=== PATIENT | male | born 1960 | race Caucasian/White ===

== ENCOUNTER → 2016-12-09 | Outpatient (CLI) | payer OTHER ==
--- NOTE | 2016-12-09 13:52 | DIAGNOSTIC IMAGING REPORT ---
FLUOROSCOPICALLY GUIDED RIGHT HIP INTRA-ARTICULAR STEROID INJECTION CLINICAL HISTORY: Right hip degenerative joint disease. FLUOROSCOPY TIME: 15 seconds. PROCEDURE: The procedure, risks and benefits were discussed with the patient and informed written consent was obtained. The procedure was performed by Dr. Szymanski following a timeout. Skin overlying the right hip joint was prepped and draped in sterile fashion and local anesthesia was achieved with 1% lidocaine. Under intermittent fluoroscopic guidance, a 3 1/2 inch 22-gauge spinal needle was directed into the right hip joint. Positioning within the joint space was confirmed with injection of 1 cc of Optiray 300. At this time, a mixture of 2 cc of Celestone and 8 cc of 0.5% Marcaine was injected into the right hip joint and the needle was removed. The patient tolerated the procedure well and no immediate complications were evident. IMPRESSION: Fluoroscopically guided right hip intra-articular injection of 2 cc of Celestone and 8 cc of 0.5% Marcaine. Electronically signed by: Ananda Szymanski M.D. 12/09/2016 1:50 PM Dictated Date/Time: 12/09/2016 1:47 PM
== END | disposition home or self-care (01) ==
LOC: C.RADBC 12:52
PROVIDERS: ATTEND Orthopaedic Surgery
DX: M16.11 Unilateral primary osteoarthritis, right hip (principal)

== ENCOUNTER → 2017-04-10 | Outpatient (CLI) | payer OTHER ==
[~2017-04-10] MED LIST: GADAVIST IV PRN
--- NOTE | 2017-04-10 15:16 | DIAGNOSTIC IMAGING REPORT ---
PROSTATE MRI COMBO CLINICAL HISTORY: 56 years-old Male presenting with ELEVATED PSA. PSA 8.7 ng/mL. TECHNIQUE: Multisequence, multiplanar MR imaging of the prostate was performed before and after the administration of intravenous contrast. Additional postprocessing was performed on a separate OzVision workstation by the radiologist for 3-D volumetric segmentation of the prostate and contouring of region(s) of interest (YAMILET) for targeting. IV contrast: 10 cc intravenous Gadavist COMPARISON: None. FINDINGS: Prostate: The prostate measures 6.8 cm (DynaCAD prostate boundary segmentation volume 104.7 mL). There is prominent benign prostatic hypertrophy with median lobe hypertrophy which extends into the bladder base. Precontrast T1 weighted imaging demonstrates no evidence of intrinsic T1 hyperintensity to suggest hemorrhage. Seminal vesicles normal. Suspicious lesion(s) described below: Lesion (DynaCAD YAMILET) 1: Location: Left posteromedial peripheral zone at the mid gland. The lesion does not extend across the midline. Size: 4 mm (as measured on ADC for PZ lesion and T2WI for TZ lesion) T2W: 4. DWI: 4. Focal markedly hypointense on ADC and markedly hyperintense on high b-value DWI. DCE: Positive. Focal enhancement corresponding to a suspicious finding, earlier or contemporaneous with adjacent normal tissue. PI-RADS: 4. Clinically significant cancer is likely to be present. Bladder: Normal. Bowel: Visualized portion of the rectum normal. Peritoneum: No free fluid in the pelvis. Lymph nodes: No lymphadenopathy in the visualized portion of the pelvis. Vasculature: Iliac vessels patent. Osseous structures: Normal bone marrow signal intensity. IMPRESSION: 1. 4 mm lesion in the right posteromedial peripheral zone at the mid gland. PI-RADS 4. Clinically significant cancer is likely to be present. Please note, this lesion may be too accurately targeted for biopsy. 2. Benign prostatic hyperplasia. Electronically signed by: Harshil Turk M.D. 04/10/2017 3:15 PM Dictated Date/Time: 04/10/2017 2:51 PM
== END | disposition home or self-care (01) ==
LOC: C.MRIBC 13:25
PROVIDERS: ATTEND Urology
DX: R97.20 Elevated prostate specific antigen [PSA] (principal); N42.9 Disorder of prostate, unspecified

== ENCOUNTER → 2017-04-10 | Outpatient (CLI) | payer OTHER | END | disposition home or self-care (01) | LOC: C.LAB 11:57 | PROVIDERS: ATTEND Urology | DX: R97.20 Elevated prostate specific antigen [PSA] (principal) ==

== ENCOUNTER → 2017-04-17 | Outpatient (CLI) | payer OTHER ==
--- NOTE | 2017-04-17 13:33 | DIAGNOSTIC IMAGING REPORT ---
RIGHT HIP INJECTION UNDER FLUOROSCOPIC GUIDANCE CLINICAL HISTORY: Degenerative joint disease right hip. Therapeutic steroid injection. PROCEDURE: The risks, benefits, and alternatives to the procedure were discussed with the patient. Written informed consent was obtained. The patient was placed supine on the fluoroscopy table, and a right hip injection was performed under fluoroscopic guidance. The area was prepped and draped in the usual sterile fashion. The skin and soft tissues anesthetized with local 1% lidocaine. The right hip joint was accessed utilizing a 22-gauge needle, and intra-articular positioning was confirmed by injecting a small volume of Optiray 300. The prescribed dosage of 2 cc of betamethasone and 8 cc of 0.5% bupivacaine was then injected into the joint space. The procedure was well tolerated and without immediate complication. The patient left the department in satisfactory condition. FLUOROSCOPY TIME: 9 seconds. IMPRESSION: Successful steroid injection of the right hip under fluoroscopic guidance. Electronically signed by: Devin Chaves M.D. 04/17/2017 1:31 PM Dictated Date/Time: 04/17/2017 1:30 PM
== END | disposition home or self-care (01) ==
LOC: C.RADBC 12:38
PROVIDERS: ATTEND Orthopaedic Surgery
DX: M16.11 Unilateral primary osteoarthritis, right hip (principal)

== ENCOUNTER → 2017-07-12 | Outpatient (CLI) | payer OTHER | END | disposition home or self-care (01) | LOC: C.PATHSPEC 17:26 | PROVIDERS: ATTEND Urology | DX: R97.20 Elevated prostate specific antigen [PSA] (principal) ==

== ENCOUNTER 2017-08-07 08:46 | Inpatient (IN) | payer OTHER ==
[2017-07-17 10:53] VITALS: Ht 175.3 cm; Wt 110.4 kg
--- NOTE | 2017-07-17 11:18 | PAT Medication Instructions ---
Service Date Jul 17, 2017. Current Home Medication List Aspirin (Aspirin Ec), 81 MG PO QPM Atorvastatin (Lipitor), 20 MG PO QPM Hydrochlorothiazide (Hydrochlorothiazide), 1 TAB PO QAM Lisinopril (Zestril), 20 MG PO QPM Metformin Hcl (Glucophage), 500 MG PO QAM Multiple Vitamins W/ Minerals (Multi For Him 50+), 1 TAB PO QPM Tamsulosin Hcl (Flomax), 0.4 MG PO QPM [Meloxicam], 15 MG PO QAM Medication Instructions For Your Scheduled Surgery - Hold the following medications 10 days prior to surgery per your surgeon's instructions: [Meloxicam], 15 MG PO QAM - Hold the following medications 48 hours prior to surgery: Metformin Hcl (Glucophage), 500 MG PO QAM - Hold the following medications the night before surgery: Lisinopril (Zestril), 20 MG PO QPM - Hold the following medications the morning of surgery: Hydrochlorothiazide (Hydrochlorothiazide), 1 TAB PO QAM - Take the following medications as scheduled the night before surgery: Aspirin (Aspirin Ec), 81 MG PO QPM Atorvastatin (Lipitor), 20 MG PO QPM Tamsulosin Hcl (Flomax), 0.4 MG PO QPM Multiple Vitamins W/ Minerals (Multi For Him 50+), 1 TAB PO QPM If you have any questions please call us at [phone] or [phone] or [phone]
--- NOTE | 2017-07-17 11:44 | DIAGNOSTIC IMAGING REPORT ---
CHEST 2 VIEWS ROUTINE HISTORY: 57 years-old Male PAT preoperative exam. No acute chest complaints COMPARISON: None available TECHNIQUE: PA and lateral views of the chest FINDINGS: The cardiomediastinal and hilar silhouettes are within normal limits. No pneumothorax, pleural effusion, focal airspace consolidation or overt pulmonary edema. Bones of the chest appear grossly intact. IMPRESSION: No acute process. The above report was generated using voice recognition software. It may contain grammatical, syntax or spelling errors. Electronically signed by: Nicola Moreno M.D. 07/17/2017 11:42 AM Dictated Date/Time: 07/17/2017 11:41 AM
[2017-07-17 12:21] LABS: BASO % 0.3 %; BASO ABS # 0.02 K/uL (0-0.2); EOS % 1.1 %; EOS ABS # 0.07 K/uL (0-0.5); HEMATOCRIT 37.6 % (42-52); IG# 0.02 K/uL (0.00-0.02); LYMPH % 22.9 %; MEAN CELL VOLUME 87.2 fL (80-100); MEAN CORPUSCULAR HEMOGLOBIN 30.2 pg (25-34); MEAN CORPUSCULAR HGB CONC 34.6 g/dl (32-36); MEAN PLATELET VOLUME 9.6 fL (7.4-10.4); MONO % 8.5 %; MONO ABS # 0.52 K/uL (0.11-0.59); NEUT % 66.9 %; NEUT ABS # 4.08 K/uL (1.4-6.5); PLATELET COUNT 253 K/uL (130-400); RED CELL DISTRIBUTION WIDTH CV 12.6 % (11.5-14.5); RED CELL DISTRIBUTION WIDTH SD 40.3 fL (36.4-46.3); WHITE BLOOD COUNT 6.11 K/uL (4.8-10.8)
[2017-07-17 12:24] LABS: CALCIUM 9.5 mg/dl (8.5-10.1); CREATININE 0.99 mg/dl (0.60-1.40); POTASSIUM 3.8 mmol/L (3.5-5.1)
[2017-07-17 12:36] LABS: HEMOGLOBIN A1C 6.4 % (4.5-5.6)
[2017-07-17 12:43] LABS: PTT PATIENT 23.7 SECONDS (21.0-31.0)
--- NOTE | 2017-08-03 21:01 | HISTORY & PHYSICAL EXAMINATION ---
DATE OF ADMISSION: 08/07/2017 CHIEF COMPLAINT: Right hip and groin pain. HISTORY OF PRESENT ILLNESS: A 57-year-old fairly active gentleman who presents for surgical treatment of his right hip. He has a 1 year history of gradually increasing right hip pain and discomfort. He saw his primary care doctor who put him on some diclofenac, which did not help much. X-rays were done and referred to Dr. Yeung. He has been managed with Meloxicam, which takes the edge off it at best. He describes groin pain that radiates down to his knee. The more he walks, the more it hurts. His limps more and more as the day goes on. He now would like to proceed with surgical treatment. PAST MEDICAL HISTORY: 1. Hypertension. 2. Elevated cholesterol. 3. Prediabetes on Metformin. 4. Obesity with a BMI of 36. 5. BPH with an abnormal PSA. PAST SURGICAL HISTORY: Include: 1. Herniorrhaphy. 2. Previous prostate biopsy. ALLERGIES: None. CURRENT MEDICINES: 1. Metformin 500 mg once a day. 2. Atorvastatin 20 mg a day. 3. Lisinopril 10 mg. 4. Tamsulosin 0.4 mg. 5. Meloxicam once a day. 6. Hydrochlorothiazide SOCIAL HISTORY: A 57-year-old male. He is . He is medical doctor, Dr. Cabral and Dr. Lobato. He does not smoke. FAMILY HISTORY: Negative for diabetes, heart disease or bleeding problems. REVIEW OF SYSTEMS: Significant for diabetes. Denies any current chest pain or shortness of breath. No history of DVT or PE or bleeding problems. PHYSICAL EXAMINATION: GENERAL: Reveals a pleasant, middle-aged male. He looks in pretty good health. HEENT: Benign. NECK: Supple. No lymphadenopathy. LUNGS: Clear to auscultation. HEART: Regular rate and rhythm. ABDOMEN: Soft, nontender, nondistended. EXTREMITIES: Grossly neurovascularly intact except as follows: Examination of the right hip and leg reveals the patient walks with a slight bit of a limp. He is about 0.5 cm short on the right side compared to left. He has significant pain with any type of hip motion. He has pretty stiff hip with internal rotation to -5, external rotation to 20 degrees. Negative straight leg raise. No knee effusion. X-RAYS: X-rays of the right hip were reviewed. It shows advanced right hip DJD. He has complete loss of his joint space. He has distal residential sales executive deformity to the proximal femur. He has cystic changes in the femoral head and acetabulum. ASSESSMENT: A 57-year-old male with advanced right hip arthritis. He has failed conservative treatment and would like to proceed with total hip arthroplasty. PLAN: We will take him to the operating room and do a right total hip replacement. The risks and benefits of this procedure were explained to the patient including but not limited to DVT, PE, , infection, neurological injury, vascular injury, bleeding problem, pain, limited range of motion, stiffness, failure to relieve symptoms, incomplete relief of symptoms, need for further surgery in the future, fracture, leg length inequality, nerve palsy, need for revision surgery. The patient understands and desires to proceed. We did talk to him about holding his metformin 2 days preoperatively and the Lisinopril the morning of surgery. He is planning to be discharged to home. His can assist in his care.
[~2017-08-07] VITALS: Ht 175.3 cm; Wt 110.4 kg
[2017-08-07] VITALS (17 sets, daily range): BP systolic 121–174; BP diastolic 74–104; PULSE 69–109; TEMP 36.3–37.2; O2SAT 93–98
[~2017-08-07 08:46] MED LIST changes: +ACETAMINOPHEN 500 MG TAB PO SCH; +ASPI81TA28 PO; +ATOR-22 PO; +BUPIVACAINE 0.5 % 5 MG/1 ML PF 10ML VIAL ONE; +FAMOTIDINE 20 MG TAB PO SCH; -GADAVIST IV PRN; +GLC/500 PO; +HYDR12.55 PO; +LACTATED RINGER'S 1000ML 1,000 ML IV SCH; +LACTATED RINGER'S 1000ML 500 ML IV SCH; +LACTATED RINGER'S 1000ML IV SCH; +LISI-461 PO; +MELOXICAM PO; +MULT-221 PO; +TAMS0.4C38 PO
[2017-08-07] MEDS ORDERED: PROPOFOL IV EMULSION 10 MG/ML 20 ML VIAL IV ONE (09:33)
[2017-08-07] MEDS ORDERED: LIDOCAINE HCL 2% 2 ML VIAL (20MG/ML) ONE (09:33)
[2017-08-07] MEDS ORDERED: MIDAZOLAM HCL 1 MG/ML 2ML VIAL ONE ×3 (09:34→13:03)
[2017-08-07] MEDS ORDERED: BUPIVACAINE/EPINEPHRINE 0.5% MPF 1:200,000 30 ML VIAL ONE (09:46)
[2017-08-07] MEDS ORDERED: BACITRACIN 50000 UNIT VIAL ONE (09:46)
[2017-08-07] MEDS ORDERED: MORPHINE SULFATE 1MG/1ML 30ML VIAL IV ONE (10:48)
[2017-08-07] MEDS ORDERED: NURSING VERBAL MED ORDER STA (11:22)
[2017-08-07] MEDS ORDERED: CEFAZOLIN SOD 2000MG/15 ML IV PUSH IV ONE (11:24)
--- NOTE | 2017-08-07 11:24 | History & Physical Bridge Note ---
H&P Re-Evaluation Bridge Note: I have examined the patient, reviewed the History & Physical and in the interval since the performance of the History & Physical I have noted the following changes of clinical significance: No changes noted
[2017-08-07] MEDS ORDERED: FENTANYL CITRATE INJ 50 MCG/1 ML 2 ML VIAL IV PRN (12:00)
[2017-08-07] MEDS ORDERED: ATROPINE SULFATE 0.1 MG/ML 5ML SYR IV PRN (12:00)
[2017-08-07] MEDS ORDERED: HYDROmorphone INJ 1 MG/ML SYR IV PRN (12:00)
[2017-08-07] MEDS ORDERED: EpHEDrine SULFATE INJ 50 MG/ML AMP IV PRN ×2 (12:00→14:00)
[2017-08-07] MEDS ORDERED: ONDANSETRON INJ 2 MG/ML 2 ML VIAL IV PRN ×3 (12:00→14:00)
[2017-08-07] MEDS ORDERED: LABETALOL HCL IV 5 MG/ML 20ML IV PRN (12:00)
[2017-08-07] MEDS ORDERED: MEPERIDINE HCL 25 MG/ML CARP IV PRN ×2 (12:00→14:00)
[2017-08-07] MEDS ORDERED: TRANEXAMIC ACID INJ 1,000 MG in SYRINGE 0 ML IV ONE (12:00)
--- NOTE | 2017-08-07 13:19 | [facility] Post Operative Brief Note ---
Immediate Operative Summary Operative Date Aug 07, 2017. Pre-Operative Diagnosis Advanced right hip arthritis Post-Operative Diagnosis Same as preoperative Procedure(s) Performed Right Total Hip Arthroplasty, uncemented Surgeon Dr. Bartolo Carrasco Furnace Hand Surgeon(s) Julio C Holland PA-C Estimated Blood Loss 300mL Findings Consistent with Post-Op Diagnosis Fluids (cc crystalloids) 1800 cc Specimens Permanent: A. Right Femoral Head Drains None Anesthesia Type Spinal MAC Complication(s) none Disposition Accompanied Pt To Recover: yes Disposition: Recovery Room / PACU
[2017-08-07] MEDS ORDERED: MoRPHine SULFATE 2 MG/ML CARP IV PRN ×2 (13:30→14:00)
[2017-08-07] MEDS ORDERED: DiphenhydrAMINE HCL 50 MG/ML VIAL IV PRN ×3 (13:30→14:00)
[2017-08-07] MEDS ORDERED: SILVER SULFADIAZINE 1% CR 50 GM JAR EXT PRN (13:30)
[2017-08-07] MEDS ORDERED: TAMSULOSIN HCL 0.4 MG CAP PO PRN (13:30)
[2017-08-07] MEDS ORDERED: ALUMINUM/MAGNESIUM/SIMETH (MAALOX MAX) 30 ML UDC PO PRN (13:30)
[2017-08-07] MEDS ORDERED: METOCLOPRAMIDE HCL INJ 5 MG/ML 2 ML VIAL IV PRN (13:30)
[2017-08-07] MEDS ORDERED: OXYCODONE HCL IR 5 MG TAB (IMMEDIATE RELEASE) PO PRN (13:30)
[2017-08-07] MEDS ORDERED: BISACODYL 10 MG SUPP PR PRN (13:30)
[2017-08-07] MEDS ORDERED: MAGNESIUM HYDROXIDE SUSP 30 ML UDC PO PRN (13:30)
[2017-08-07] MEDS ORDERED: ZOLPIDEM TARTRATE 5 MG TAB PO PRN (13:30)
[2017-08-07] MEDS ORDERED: CEFAZOLIN IV 2,000 MG in DEXTROSE 5% 50ML 50 ML IV SCH (13:30)
--- NOTE | 2017-08-07 13:47 | Anesthesiology Progress Note ---
Anesthesia Post Op Note Date & Time Aug 07, 2017 at 13:47 Vital Signs Pain Intensity: 0 Vital Signs Past 12 Hours Date Time Temp Pulse Resp B/P (MAP) Pulse Ox O2 Delivery O2 Flow Rate FiO2 08/07/17 13:35 78 18 141/77 97 Nasal Cannula 2 08/07/17 13:25 82 16 141/79 94 Nasal Cannula 2 08/07/17 13:19 36.1 84 16 125/74 97 Nasal Cannula 2 08/07/17 09:35 37.2 80 18 174/98 08/07/17 09:25 97 Room Air Notes Mental Status: alert / awake / arousable, participated in evaluation Pt Amnestic to Procedure: Yes Nausea / Vomiting: adequately controlled Pain: adequately controlled Airway Patency, RR, SpO2: stable & adequate BP & HR: stable & adequate Hydration State: stable & adequate Neuraxial Anesthesia: was administered, sensory block is resolving Anesthetic Complications: no major complications apparent
[2017-08-07] MEDS ORDERED: SODIUM CHLORIDE 0.9% 1000ML 1,000 ML IV PRN (13:49)
[2017-08-07] MEDS ORDERED: NALOXONE HCL INJ 0.08 MG in SYRINGE 1.8 ML IV PRN (13:49)
[2017-08-07] MEDS ORDERED: LACTATED RINGER'S 1000ML 500 ML IV PRN (13:49)
[2017-08-07] MEDS ORDERED: NALOXONE HCL INJ 1 MG in SODIUM CHLORIDE 0.9% 1000ML 1,000 ML IV PRN (13:49)
[2017-08-07] MEDS ORDERED: METOCLOPRAMIDE HCL INJ 20 MG in SODIUM CHLORIDE 0.9% 50ML 50 ML IV PRN (14:00)
[2017-08-07] MEDS ORDERED: NALOXONE HCL 0.4 MG/1 ML VIAL/CARP IV PRN (14:00)
[2017-08-07] MEDS ORDERED: DC INTRASPINAL MORPHINE SCH (14:00)
[2017-08-07] MEDS ORDERED: MoRPHine SULFATE PF 1 MG/ML 10 ML AMP/VIAL EPI PRN (14:00)
[2017-08-07] MEDS ORDERED: KETOROLAC TROMETHAMINE 30 MG/ML VIAL IV. PRN (14:00)
[2017-08-07] MEDS ORDERED: NALBUPHINE HCL INJ 10 MG/ML AMP IV PRN (14:00)
[2017-08-07] MEDS ORDERED: NO NARCOTICS OR SEDATIVES SCH (14:00)
--- NOTE | 2017-08-07 14:00 | DIAGNOSTIC IMAGING REPORT ---
R PELVIS/UNILATERAL HIP 1 VIEW CLINICAL HISTORY: IN PACU - A/P PELVIS and LATERAL HIP INCLUDING ALL OF IMPLANT COMPARISON: None. DISCUSSION: Evidence for total right hip arthroplasty. Good contact between metallic prosthesis and underlying bone. Acetabular cup appears to be aligned appropriately. IMPRESSION: Anatomic alignment status post total right hip replacement. The above report was generated using voice recognition software. It may contain grammatical, syntax or spelling errors. Electronically signed by: Al Allen M.D. 08/07/2017 1:58 PM Dictated Date/Time: 08/07/2017 1:58 PM
--- NOTE | 2017-08-07 14:27 | OPERATIVE REPORT ---
DATE OF OPERATION: 08/07/2017 SURGEON: Bartolo Carrasco MD PARTS ANALYST: YANIQUE Light PREOPERATIVE DIAGNOSIS: Right hip degenerative joint disease. POSTOPERATIVE DIAGNOSIS: Same. PROCEDURE PERFORMED: Right uncemented ceramic on highly cross-linked polyethylene total hip arthroplasty. COMPLICATIONS: None. ESTIMATED BLOOD LOSS: 300 mL FLUID REPLACEMENT: 1800 mL crystalloid fluid replacement. ANESTHESIA: Spinal. DRAINS: None. SPECIMENS: Right femoral head sent for pathology. OPERATIVE INDICATIONS: The patient is a 57-year-old active gentleman who has had a year history of markedly increased right hip pain and discomfort that has gradually gotten worse and unresponsive to conservative care. X-rays showed advanced hip DJD. The patient elected to proceed with total hip arthroplasty. OPERATIVE FINDINGS: Operative findings revealed advanced right hip DJD. He had a grade 4 [id number] disease of the femoral head and acetabulum. Moderate size joint effusion. A pretty significant anterior acetabular osteophyte. He had a flattened pistol pressroom foreman femoral head and proximal femur. OPERATIVE IMPLANTS: Operative implants consisted of: 1. Biomet size 54 mm G7 acetabular shell. 2. A 6.5 cancellous acetabular screws, 1 at 35 mm in length and 1 at 25 mm in length. 3. An apex hole eliminator. 4. Highly cross-linked polyethylene liner with 54 mm outer diameter and 36 mm inner diameter. 5. A DePuy Corail size 11 coxa vara femoral component. 6. A +8.5/36 mm ceramic articular ball. OPERATIVE PROCEDURE: The patient taken to the operating room, identified and placed on the operating table in supine position. All contact areas were appropriately padded. IV antibiotics were provided by anesthesia team. A spinal anesthetic had been implemented in holding area. Power catheter was placed in a sterile fashion. The patient was then placed in the left lateral decubitus position. An axillary roll was placed. Stlberg hip positioner was used for positioning. Right hip and leg were then prepped and draped in the usual sterile fashion. Posterolateral approach to the right hip was then performed through a curvilinear incision centered over the greater trochanter. Sharp dissection was carried through the subcutaneous tissues down to the level of the IT band and gluteal fascia. These subcutaneous tissues were fairly full of lipomatous type tissue with a fairly poor architecture. This made exposure a little bit more difficult. The fat kept falling into the wound site. The IT band and gluteal fascia were then incised longitudinally in line with skin incision. The underlying greater trochanteric bursa was excised. The piriformis and external rotators were tagged and taken off the posterior aspect of the hip joint capsule. Great care was taken throughout the procedure to protect the sciatic nerve at all times. Posterior capsulotomy was then performed leaving a large flap for later repair. Hip was internally rotated and dislocated. Femoral neck osteotomy cut was made with the final cut 10 mm above the lesser trochanter. Femoral head was removed and sent for pathology. The femur was retracted anteriorly. Attention was then drawn to the acetabulum. The acetabular labrum was excised. The pulvinar fat was excised. Sequential reaming of the acetabulum was then performed beginning with a size 45 and progressing up to a 53. A 54-mm Biomet G7 acetabular shell was then placed in about 40 degrees of lateral opening and 20 degrees of anteversion. It was fixed with two 6.5 cancellous acetabular screws. A trial liner was placed. The anterior osteophyte was removed. Attention was then drawn to the femur. The proximal femur was entered with a cookie cutter followed by canal finder. I then broached beginning with a size 8 and progressing up to a size 11. We got excellent fit with the 11. I did not think that the 12 would fit. We then used a calcar reamer to smoothen off the calcar. I trialed the hip and the +8.5/36 mm articular ball seemed to recreate leg lengths appropriately and soft tissue tension offset appropriately. The hip was fully stable in full extension and external rotation and flexion to 90 degrees, internal rotation to 60+ degrees. We elected to use these implants. All trial implants were removed. An apex hole eliminator was placed. Highly cross-linked polyethylene liner was placed. A DePuy Corail size 11 coxa vara femoral stem was implanted. A +8.5/36 mm ceramic articular ball was placed. Hip was located and once again found to be stable. Attention was then drawn toward closing. The wound was irrigated with copious amounts of pulsatile lavage solution. I did inject locally with 60 mL of 0.5% Marcaine with epinephrine. The external rotators were then repaired through drill holes in the posterior trochanter with #2 Ti-Cron suture. The IT band and gluteal fascia were then closed with #1 PDS suture in running fashion. The subcutaneous tissues were then closed with 2 layers, which was a deep layer #1 Vicryl suture and the subcutaneous tissue with 2-0 Dexon suture in a buried interrupted fashion. The skin was closed with skin yulissa. Leg was then cleaned and dried and a sterile dressing of Xeroform, 4 x 4's, ABD pad and foam tape was applied. The patient was then transferred to the recovery room in stable condition. The patient tolerated the procedure well without complications. All needle and sponge counts were correct at the end of the operation. I attest to the content of the Intraoperative Record and any orders documented therein. Any exception s are noted below.
[2017-08-07] MEDS: SODIUM CHLORIDE 0.9% 1000ML 1,000 ML IV SCH ×2 (14:54→21:14)
[2017-08-07] MEDS: KETOROLAC TROMETHAMINE 30 MG/ML VIAL IV. SCH ×2 (15:41→21:11)
[2017-08-07] MEDS ORDERED: GLUCOSE 40% GEL 15 GM TUBE PO PRN (15:45)
[2017-08-07] MEDS ORDERED: GLUCOSE 10 TABS/TUBE PO PRN (15:45)
[2017-08-07] MEDS ORDERED: GLUCAGON FOR INJ 1 MG VIAL SQ PRN (15:45)
[2017-08-07] MEDS ORDERED: DEXTROSE 50% 50 ML SYR IV PRN (15:45)
[2017-08-07] MEDS: INSULIN HUMAN REGULAR SC SCH ×2 (17:15→21:00)
[2017-08-07] MEDS: FERROUS GLUCONATE 324 MG TAB PO SCH (17:44)
[2017-08-07] MEDS ORDERED: TRANEXAMIC ACID INJ 1,000 MG in SODIUM CHLORIDE 0.9% 100ML 100 ML IV ONE (19:30)
[2017-08-07] MEDS: CEFAZOLIN IV 2,000 MG in SYRINGE 5 ML IV SCH (19:35)
[2017-08-07] MEDS: DOCUSATE SODIUM 100 MG CAP PO SCH (20:10)
--- NOTE | 2017-08-07 20:32 | PROGRESS NOTE ---
DATE: 08/07/2017 SUBJECTIVE: A 57-year-old gentleman postop from a right total hip replacement. He is doing well. He really do not have any pain yet. No chest pain or shortness of breath. Not feeling dizzy or lightheaded. OBJECTIVE: VITAL SIGNS: Temperature 36.9. Vital signs stable. GENERAL: Shows a pleasant, middle-aged male. He is sitting in his bedside chair and looks pretty comfortable. LUNGS: Clear to auscultation. HEART: Has a regular rate and rhythm. ABDOMEN: Soft, nontender, nondistended. EXTREMITIES: Grossly neurovascularly intact except as follows. Examination of the right hip and leg reveal dressing to be clean, dry and intact. Leg lengths were equal. The hip is located. He is neurologically intact. X-RAYS: X-rays of the right hip from recovery room reviewed of his right uncemented total hip arthroplasty. Components looked to be in good position. No signs of problems. ASSESSMENT: A 57-year-old gentleman postop from a right total hip replacement, doing well. His pain is controlled. Hip is located. He is neurologically intact. PLAN: 1. DVT prophylaxis including thigh high TEDs, SCDs, and aspirin twice a day. 2. PT, OT. Weightbearing as tolerated. Right total hip protocol. 3. Pain control, doing well with current pain regimen. 4. IV antibiotics x24 hours. 5. Disposition. He is planning to be discharged to home likely with some home health once adequately recovered.
[2017-08-07] MEDS ORDERED: LISINOPRIL 20 MG TAB PO SCH (21:00)
[2017-08-07] MEDS ORDERED: CEROVITE ADV FORMULA TAB PO SCH (21:00)
[2017-08-07] MEDS ORDERED: SENNA 8.6 MG TAB PO SCH (21:00)
[2017-08-07] MEDS ORDERED: ATORVASTATIN 20 MG TAB PO SCH (21:00)
[2017-08-07] MEDS ORDERED: TAPENTADOL ER 50 MG TABCR PO SCH (21:00)
[2017-08-07] MEDS ORDERED: TAMSULOSIN HCL 0.4 MG CAP PO SCH (21:00)
[2017-08-07] MEDS: ASPIRIN 325 MG ECTAB PO SCH (21:11)
[2017-08-07] MEDS: ACETAMINOPHEN 500 MG TAB PO SCH (21:11)
[2017-08-08] VITALS (8 sets, daily range): BP systolic 108–127; BP diastolic 62–74; PULSE 80–92; TEMP 36.8–36.9; O2SAT 90–97
[2017-08-08] MEDS: SODIUM CHLORIDE 0.9% 1000ML 1,000 ML IV SCH ×2 (03:46→10:47)
[2017-08-08] MEDS: CEFAZOLIN IV 2,000 MG in SYRINGE 5 ML IV SCH (03:59)
[2017-08-08] MEDS: KETOROLAC TROMETHAMINE 30 MG/ML VIAL IV. SCH ×3 (03:59→16:54)
[2017-08-08] MEDS: ACETAMINOPHEN 500 MG TAB PO SCH ×2 (05:54→14:12)
[2017-08-08 06:29] LABS: BASO % 0.2 %; BASO ABS # 0.01 K/uL (0-0.2); EOS % 0.6 %; EOS ABS # 0.04 K/uL (0-0.5); HEMATOCRIT 29.8 % (42-52); HEMOGLOBIN 9.8 g/dL (14.0-18.0); IG# 0.02 K/uL (0.00-0.02); LYMPH % 22.1 %; LYMPH ABS # 1.45 K/uL (1.2-3.4); MEAN CELL VOLUME 89.2 fL (80-100); MEAN CORPUSCULAR HEMOGLOBIN 29.3 pg (25-34); MEAN CORPUSCULAR HGB CONC 32.9 g/dl (32-36); MONO % 15.4 %; MONO ABS # 1.01 K/uL (0.11-0.59); NEUT % 61.4 %; NEUT ABS # 4.03 K/uL (1.4-6.5); PLATELET COUNT 191 K/uL (130-400); RED CELL DISTRIBUTION WIDTH CV 12.7 % (11.5-14.5); RED CELL DISTRIBUTION WIDTH SD 41.3 fL (36.4-46.3); WHITE BLOOD COUNT 6.56 K/uL (4.8-10.8)
[2017-08-08 07:01] LABS: CALCIUM 7.7 mg/dl (8.5-10.1); CREATININE 1.28 mg/dl (0.60-1.40); POTASSIUM 3.6 mmol/L (3.5-5.1)
[2017-08-08] MEDS: INSULIN HUMAN REGULAR SC SCH ×2 (08:00→12:00)
[2017-08-08] MEDS: DOCUSATE SODIUM 100 MG CAP PO SCH (08:58)
[2017-08-08] MEDS: FERROUS GLUCONATE 324 MG TAB PO SCH ×2 (08:58→14:12)
[2017-08-08] MEDS: ASPIRIN 325 MG ECTAB PO SCH (08:59)
[2017-08-08] MEDS ORDERED: FRRG PO (09:00)
[2017-08-08] MEDS ORDERED: HYDROCHLOROTHIAZIDE 25 MG TAB PO SCH (09:00)
[2017-08-08] MEDS ORDERED: MULTIVITAMIN TAB PO SCH (09:00)
[2017-08-08] MEDS ORDERED: ACET-24 PO (09:00)
[2017-08-08] MEDS ORDERED: ASPEC325 PO (09:00)
[2017-08-08] MEDS ORDERED: PANTOprazole SOD 40 MG TAB PO SCH (09:00)
[2017-08-08] MEDS ORDERED: TAPENTADOL ER 50 MG TABCR PO SCH (09:00)
[2017-08-08] MEDS ORDERED: RXC5 PO (09:00)
--- NOTE | 2017-08-08 09:02 | Discharge Instructions ---
Discharge Instructions Date of Service Aug 08, 2017. Admission Reason for Admission: Right Hip Degenerative Joint Disease Discharge Discharge Diagnosis / Problem: Right Hip Replacement Discharge Goals Goal(s): Decrease discomfort, Improve function, Increase independence, Improve disease control, Therapeutic intervention Activity Recommendations Activity Limitations: per Instructions/Follow-up section (Total Hip PRecautions ) Weightbearing Status: Right weightbearing . Instructions / Follow-Up Instructions / Follow-Up ACTIVITY RECOMMENDATIONS: Physical Therapy: * Aggressive physical therapy is not usually needed. You will learn to take care of yourself safely and walk. * Follow the "Hip Precautions Instructions." * In some cases, the social science instructor at the hospital will arrange to have a therapist come to your house for the first couple of weeks to help you learn these skills. * You need to practice on your own or with the help of a family member as needed. * When you learn these skills, most of the therapy can be done on your own. Home Exercise: * You were shown a series of exercises in the hospital. Do these exercises three to four times each day including the exercises you were shown in physical therapy. Walking: * Get up and walk several times each day. For the first four weeks, try not to stand or walk for more than one hour at a time. If you do stand or walk for more than one hour, you will not hurt anything, but your leg will likely swell. * As you feel comfortable, you may change from the walker or crutches to a cane and then to independent walking. MEDICATIONS: New Medicine: * You will likely be taking one or more of these medicines: 1. Oxycodone - Take, as directed, when you need it, every four to six hours to control your pain. 2. Iron Sulfate - Take two times each day for the month after surgery to help you replace the blood lost during surgery. 3. Aspirin - Thins your blood to lessen the chance of forming a blood clot. * The most common side effects of pain medicine and iron are nausea and constipation. If nausea or constipation is too much of a problem or if you have any questions about your new medicines or doses, call [facility] at [phone]. We will try to help you manage these issues. VERY IMPORTANT TO READ AND REVIEW" Pain: * The immediate post-operative period after hip replacement surgery is often quite painful. * You are given a prescription for pain medicine. You should take it, as directed, when you need it, especially before physical therapy and before going to bed. Pain that interferes with sleep is very common and can last several months. * You will likely need pain medicine for the first two to four weeks. It will not stop all of the pain. The pain will lessen and as you feel better, you may change to milder pain medicine such as Tylenol. * The most common side effects of pain medicine are nausea and constipation, so don't take more than you need. SPECIAL CARE INSTRUCTIONS: TEDs/Elastic Stockings: * The white elastic stockings help limit swelling and prevent blood clots from forming in your legs. The more you wear them, the more they work. * Wear them for six weeks. Prevention of Infection: * Take antibiotics one hour before any dental cleaning, dental work, urological procedure, gastrointestinal procedure or any invasive surgery in order to prevent your new joint from getting infected. * You may get the antibiotics from the doctor performing the procedure or you may call our office at before and we will call in a prescription to the pharmacy of your choice. Things to Watch For: * Drainage from the incision site that occurs more than one week after your surgery. * Severely increased leg pain or swelling. * Increased redness at the incision site. * Fever above 102 degrees Fahrenheit. * Unusual chest pain or shortness of breath. * Unusual pain or burning with urination. Call [facility] at with any of the above problems or if you have any questions about your medicines or recovery. FOLLOW UP VISIT: Make an appointment to see your doctor for approximately two weeks after surgery for a progress check and staple removal by calling the office at . Current Hospital Diet Patient's current hospital diet: Diabetes Type 2 Diet Discharge Diet Recommended Diet: Diabetes Type 2 Diet Procedures Procedures Performed: Right Total Hip Arthroplasty, uncemented Pending Studies Studies pending at discharge: no Laboratory Results Hemoglobin A1c Test 07/17/17 11:30 Range/Units Estimated Average Glucose 137 mg/dl Hemoglobin A1c 6.4 H 4.5-5.6 % Medical Emergencies . Who to Call and When: Medical Emergencies: If at any time you feel your situation is an emergency, please call 911 immediately. . Non-Emergent Contact Non-Emergency issues call your: Surgeon . "Provider Documentation" section prepared by Bartolo Carrasco. . VTE Core Measure Inpt VTE Proph given/why not?: Other Anticoagulation, [place], SCD's
--- NOTE | 2017-08-08 09:08 | PROGRESS NOTE ---
DATE: 08/08/2017 SUBJECTIVE: A 57-year-old gentleman postop day 1 from right total hip replacement. He is doing well. Pain is controlled. He had a good night. No chest pain or shortness of breath. Not feeling dizzy or lightheaded. OBJECTIVE: VITAL SIGNS: Temperature 36.8. Vital signs stable. PHYSICAL EXAMINATION: GENERAL: Reveals a healthy, pleasant middle-aged male. He is sitting up in bed, looks pretty comfortable. EXTREMITIES: Examination of the right hip and leg reveals the dressing to be clean, dry and intact. Leg lengths are equal. Hip is located. NEURLOGIC: He is neurologically intact. LABORATORY DATA: Hemoglobin 9.8, hematocrit 29.8. Electrolytes are stable. ASSESSMENT: A 57-year-old gentleman postop day 1 from right total hip replacement, doing well. Pain is controlled. Hip is located. He is neurologically intact. PLAN: 1. DVT prophylaxis including thigh-high TEDs, SCDs, and aspirin twice a day. 2. PT/OT. Weight bear as tolerated. Right total hip protocol. 3. Pain control, doing pretty well with current pain regimen. 4. Anemia. Asymptomatic. We will continue iron supplementation. 5. Disposition: He is planning to be discharged to home with some home health once adequately recovered.
--- NOTE | 2017-08-08 11:08 | Anesthesiology Progress Note ---
Anesthesia Post Op Note Date & Time Aug 08, 2017 at 11:07 Vital Signs Pain Intensity: 0.0 Vital Signs Past 12 Hours Date Time Temp Pulse Resp B/P (MAP) Pulse Ox O2 Delivery O2 Flow Rate FiO2 08/08/17 07:56 Room Air 08/08/17 07:26 36.8 92 18 116/62 (80) 93 Room Air 08/08/17 06:00 14 97 08/08/17 04:50 16 97 08/08/17 03:49 16 97 08/08/17 03:18 36.9 81 16 108/67 (81) 95 Room Air 08/08/17 02:23 16 96 08/07/17 23:58 93 Room Air 08/07/17 23:58 18 96 Notes Mental Status: alert / awake / arousable, participated in evaluation Pt Amnestic to Procedure: Yes Nausea / Vomiting: adequately controlled Pain: adequately controlled Airway Patency, RR, SpO2: stable & adequate BP & HR: stable & adequate Hydration State: stable & adequate Neuraxial Anesthesia: sensory block resolved Anesthetic Complications: no major complications apparent
--- NOTE | 2017-08-16 18:38 | DISCHARGE SUMMARY ---
ADMITTING PHYSICIAN AND SURGEON: Bartolo Carrasco MD. ADMITTING DIAGNOSIS: Right hip degenerative joint disease. SURGERY PERFORMED: Right total hip arthroplasty. SECONDARY DIAGNOSES: Hypertension, elevated cholesterol, prediabetes, obesity, benign prostatic hypertrophy. CONSULTS: None obtained. HISTORY AND PHYSICAL EXAMINATION: Well documented in the patient's chart. HOSPITAL COURSE: The patient was admitted on 08/07/2017, underwent total hip arthroplasty, tolerated the procedure well. There were no complications. He was transferred to the PACU postoperatively and later to the orthopedic floor for further care. He was given Ancef for antibiotic prophylaxis, YENIFER stockings, SCDs and aspirin for DVT prophylaxis. His hemoglobin, hematocrit and vital signs were monitored during his hospital stay and remained stable. He developed some postoperative anemia with a hemoglobin down to 9.8. Did not require any blood transfusions. There were no complications. On postoperative day 1, he was tolerating a regular diet, pain was controlled with oral pain medicine. He was participating in physical therapy. On postop day 1, he was discharged home and set up with home health services, given printed discharge instructions including new prescriptions for extra strength Tylenol, aspirin 325 mg b.i.d., iron supplement and oxycodone. He was instructed to continue his home medications with the exception of his home dose of aspirin which was changed. Continue physical therapy, weightbearing as tolerated, YENIFER stockings, total hip precautions and follow up in 10-12 days or sooner if there are any problems or concerns.
== END 2017-08-08 17:13 | disposition home health service (06) | DRG 470 ==
LOC: C.ACU 08:46 → C.3E 13:23 → ENRESERV 13:35
PROVIDERS: ADMIT Orthopaedic Surgery Sports Medicine; ATTEND Orthopaedic Surgery Sports Medicine
PROC: 0SR904A Replacement of Right Hip Joint with Ceramic on Polyethylene Synthetic Substitute, Uncemented, Open Approach (ICD-10-PCS; principal; 2017-08-07 11:00)
DX: M16.11 Unilateral primary osteoarthritis, right hip (principal); I10 Essential (primary) hypertension; E78.5 Hyperlipidemia, unspecified; R73.03 Prediabetes; Z79.84 Long term (current) use of oral hypoglycemic drugs; E66.9 Obesity, unspecified; Z68.36 Body mass index [BMI] 36.0-36.9, adult